=== PATIENT | female | born 2000 | race Caucasian/White ===

== ENCOUNTER 2020-04-12 23:24 | Emergency (ER) | payer OTHER ==
[~2020-04-12] VITALS: Ht 167.6 cm; Wt 56.7 kg
[2020-04-12 23:32] VITALS: Ht 167.6 cm; Wt 56.7 kg
[2020-04-13 00:12] LABS: BASOPHIL % 0.5 % (0-2); PLATELET COUNT 358 x10^3mcL (130-400); RED CELL DISTRIBUTION WIDTH 13.3 % (11.5-14.5)
[2020-04-13 00:31] LABS: CALCIUM 8.4 mg/dL (8.5-10.1); CHLORIDE SERUM 102 mmol/L (98-107); CREATININE SERUM 1.2 mg/dL (0.6-1.0); GFR1 > 60 mL/min; GLUCOSE SERUM 110 mg/dL (74-106); POTASSIUM SERUM 4.1 mmol/L (3.5-5.1); SODIUM SERUM 137 mmol/L (136-145)
[2020-04-13 00:35] LABS: ALKALINE PHOSPHATASE 62 U/L (46-116); ALT/SGPT 19 U/L (14-59); AST/SGOT 15 U/L (15-37); BILIRUBIN TOTAL 0.4 mg/dL (0.20-1.00); LIPASE 106 IU/L (73-393); TOTAL PROTEIN, SERUM 7.5 g/dL (6.4-8.2)
[2020-04-13 03:36] VITALS: BP 96/56
== END 2020-04-13 03:59 | disposition home or self-care (01) ==
LOC: ED 23:24
PROVIDERS: Emergency Medicine
DX: N83.8 Other noninflammatory disorders of ovary, fallopian tube and broad ligament (principal)
CPT/HCPCS: J1885; Q0092